=== PATIENT | female | born 1995 | race African-American/Black ===

== ENCOUNTER 2019-01-06 19:16 | Emergency (ER) | payer SELFPAY ==
[~2019-01-06] VITALS: Ht 162.6 cm; Wt 89.4 kg
[2019-01-06] MEDS ORDERED: IBUPROFEN 600 MG TAB PO NR (19:45)
[2019-01-06] MEDS ORDERED: ACETAMINOPHEN 325 MG TAB PO ONE (19:45)
[2019-01-06] MEDS ORDERED: IBUPROFEN 200 MG TAB ONE (19:57)
[2019-01-06] MEDS ORDERED: ACETAMINOPHEN 325 MG TAB ONE (19:57)
[2019-01-06] MEDS ORDERED: SODIUM CHLORIDE 0.9% 1000ML 1,000 ML IV SCH (20:00)
[2019-01-06] MEDS ORDERED: SODIUM CHLORIDE 0.9% 50ML 50 ML ONE (20:25)
[2019-01-06] MEDS ORDERED: IOPAMIDOL 370 MG/ML 200 ML INFUS..BTL INJ ONE (20:26)
[2019-01-06] MEDS ORDERED: ONDANSETRON HCL INJ 2MG/ML 2ML 2 MG/ML VIAL IV STA (21:00)
[2019-01-06] MEDS ORDERED: MORPHINE SULFATE INJ 4 MG/ML INJ 1ML IV PRN (21:00)
--- NOTE | 2019-01-06 21:32 | Diagnostic Imaging Report ---
EXAM: CT Abdomen and Pelvis WITH contrast INDICATION: Upset stomach, nausea, vomiting , diarrhea COMPARISON: TECHNIQUE: Abdomen and pelvis were scanned utilizing a multidetector helical scanner from the lung base to the pubic symphysis after administration of IV contrast. Coronal and sagittal reformations were obtained. Routine protocol was performed. Scan was performed when during portal venous phase. IV CONTRAST: 100 mL of Isovue 370 ORAL CONTRAST: None COMPLICATIONS: None RADIATION DOSE: Total DLP: 708 mGy*cm Estimated effective dose: (DLP x 0.015 x size factor) mSv CTDIvol has been reviewed. It is below the limits set by the Radiation Protocol Committee (RPC). Dose modulation, iterative reconstruction, and/or weight based adjustment of the mA/kV was utilized to reduce the radiation dose to as low as reasonably achievable. FINDINGS: LINES and TUBES: None. LOWER THORAX: Unremarkable HEPATOBILIARY: No focal hepatic lesions. No biliary ductal dilation. GALLBLADDER: A 1.7 cm peripherally calcified gallstone in the gallbladder neck. No wall thickening. No pericholecystic fluid. The gallbladder is not overly distended. SPLEEN: No splenomegaly. PANCREAS: No focal masses or ductal dilatation. ADRENALS: No adrenal nodules KIDNEYS/URETERS: Kidneys enhance symmetrically. No hydronephrosis. No cystic or solid mass lesions. No stones. GI TRACT: No abnormal distention, wall thickening, or evidence of bowel obstruction. Mild wall thickening and mucosal hyperenhancement of the descending colon which contains liquid stool. Appendix is not clearly identified. There is however no fat stranding or adenopathy in the right lower quadrant to suggest appendicitis. PELVIC ORGANS/BLADDER: Unremarkable. LYMPH NODES: No lymphadenopathy. VESSELS: Unremarkable. PERITONEUM / RETROPERITONEUM: No free air or fluid. BONES: Dextroconvex curvature of the lower thoracic and upper lumbar spine.. SOFT TISSUES: Unremarkable. IMPRESSION: 1. Nonspecific mild colitis of the descending colon. 2. Cholelithiasis without evidence of acute obstructive cholecystitis. Signed by: Dada Suarez DO on 01/06/2019 9:29 PM
[2019-01-06 22:46] VITALS: BP 138/71
== END 2019-01-06 21:53 | disposition home or self-care (01) ==
LOC: FSED 19:16
DX: R42 Dizziness and giddiness (principal); E87.6 Hypokalemia; K52.9 Noninfective gastroenteritis and colitis, unspecified; K51.90 Ulcerative colitis, unspecified, without complications; K80.00 Calculus of gallbladder with acute cholecystitis without obstruction
CPT/HCPCS: 74177; 80053; 81003; 83518; 85025; 87400; 99283; J2405; J7030; Q9967